=== PATIENT | female | born 1945 | race Caucasian/White ===

== ENCOUNTER → 2018-03-31 | Outpatient (CLI) | payer OTHER ==
[~2018-03-31] MED LIST: ACETAMINOPHEN-1 EAC1 PO; ASPIRIN325 PO; ATORVASTATIN CA40 MG; CARVEDILOL12.5 MG PO; GLUCOPHAGE1000 MG PO; GLUCOTROL5 MG PO; INVOKANA100 MG PO; LOSARTAN-HCTZ1 EAC2 PO; NORVASC5 MG PO; PRILOSEC 20 MG20 MG PO; PRILOSEC40 MG PO; RESTORIL30 MG PO; ZYRTEC 10 MG TA10 M1 PO
--- NOTE | 2018-03-31 16:57 | 2DMMODE ---
[place] [address] 2 D/M-MODE ECHOCARDIOGRAM Name: DAVON NEVAREZ Room: [facility]#: [id number] Admission: 03/31/18 Attend Phys: Jelani Puga, Discharge: Date of : 41 Date of Service: 03/31/18 1657 Report #: [id number] THIS REPORT FOR: //name// APPROVED REPORT Study performed: 03/31/2018 15:09:35 EXAM: Comprehensive 2D, Doppler, and color-flow Echocardiogram Patient Location: Out-Patient Status: routine BSA: 1.90 HR: 82 bpm BP: 150/62 mmHg Other Information Study Quality: Good Indications Aortic Valve Disease 2D Dimensions IVSd: 14.76 (7-11mm) LVOT Diam: 20.21 (18-24mm) LVDd: 44.95 mm PWd: 11.55 (7-11mm) Ascending Ao: 31.13 (22-36mm) LVDs: 21.50 (25-40mm) Aortic Root: 26.73 mm Volumes Left Atrial Volume (Systole) LA ESV Index: 18.20 mL/m2 Aortic Valve AoV Peak Hunter.: 2.73 m/s AO Peak Gr.: 29.71 mmHg LVOT Max P.46 mmHg AO Mean Gr.: 17.09 mmHg LVOT Mean P.06 mmHg LVOT Max V: 1.45 m/s AO V2 VTI: 53.57 cm LVOT Mean V: 0.92 m/s HORACIO (VTI): 1.78 cm2 LVOT V1 VTI: 29.80 cm Mitral Valve E/A Ratio: 0.58 MV Decel. Time: 267.28 ms MV E Max Hunter.: 0.52 m/s MV PHT: 77.51 [place] [address] 2 D/M-MODE ECHOCARDIOGRAM Name: DAVON NEVAREZ Room: [facility]#: [id number] Admission: 03/31/18 Attend Phys: Jelani Puga, Discharge: Date of : 41 Date of Service: 03/31/18 1657 Report #: [id number] MVA (PHT): 2.84 cm2 TDI E/Lateral E': 8.67 E/Medial E': 7.43 Medial E' Hunter.: 0.07 m/s Lateral E' Hunter.: 0.06 m/s Pulmonary Valve PV Peak Hunter.: 1.28 m/s PV Peak Gr.: 6.56 mmHg Tricuspid Valve TR Peak Gr.: 32.07 mmHg RVSP: 37.07 mmHg Left Ventricle The left ventricle is normal size. There is normal LV segmental wall motion. Mild concentric left ventricular hypertrophy. Left ventricular systolic function is normal. The left ventricular ejection fraction is within the normal range. LVEF is 65-70%. Grade I - abnormal relaxation pattern. Right Ventricle The right ventricle is normal size. The right ventricular systolic function is normal. Atria The left atrium size is normal. The right atrium size is normal. Aortic Valve Aortic valve is mildly calcified. Mild aortic regurgitation. Mild aortic stenosis. Mitral Valve The mitral valve is normal in structure. There is no mitral valve regurgitation noted. No evidence of mitral valve stenosis. Tricuspid Valve The tricuspid valve is normal in structure. Mild tricuspid regurgitation. The RVSP is __37.1 mmHg. Pulmonic Valve The pulmonary valve is normal in structure. There is no pulmonic valvular regurgitation. Great Vessels The aortic root is normal in size. IVC is [place] [address] 2 D/M-MODE ECHOCARDIOGRAM Name: DAVON NEVAREZ Room: [facility]#: [id number] Admission: 03/31/18 Attend Phys: Jelani Puga, Discharge: Date of : 41 Date of Service: 03/31/18 1657 Report #: [id number] collapses with >50% inspiration Pericardium There is no pericardial effusion. <Conclusion> LVEF is 65-70%. Mild concentric left ventricular hypertrophy. Mild aortic stenosis. Mild aortic regurgitation. <ELECTRONICALLY SIGNED> By: Nawaf Steiner MD, [facility] 03/31/181656 56 56 Nawaf Steiner MD, FAC /INF
== END ==
LOC: M.CRD 14:48
DX: I08.2 Rheumatic disorders of both aortic and tricuspid valves (principal)

== ENCOUNTER → 2019-12-25 | Outpatient (CLI) | payer OTHER | LOC: M.RAD 11-13 16:49 | DX: Z12.31 Encounter for screening mammogram for malignant neoplasm of breast (principal) ==

== ENCOUNTER → 2020-07-07 | Outpatient (CLI) | payer OTHER ==
--- NOTE | 2020-07-11 07:38 | PATH ---
[address] [address] PATHOLOGY RPT PROCEDURE Name: DAVON NEVAREZ Room: [facility] Russo.#: [id number] Admission: 07/07/20 Date of : 41 Discharge: Report #: [id number] Path Case #: [id number] Note [facility] Accession Number: [id number] TESTS RESULT FLAG UNITS REF RANGE LAB Clinician Provided Cytology Information No. of containers..01 Other (Miscellaneous) Source: LEFT THYROID NODULE DIAGNOSIS: LEFT THYROID NODULE, IMAGE-GUIDED FNA ETHESDA CATEGORY II: CONSISTENT WITH A BENIGN FOLLICULAR/ADENOMATOID NODULE. THIS INTERPRETATION INCLUDES EVALUATION OF A CELL BLOCK. Signed out by: 02 Karel Lewis MD, Pathologist NPI- [id number] Performed by: 01 Brianna Duran, Hair Cutter ([facility]) Gross description: 01 20ML, RED, 4FX 4AD /LCS 07/08/2020 1316 Local FLAG LEGEND: L-Low Normal,H-High Normal,LL-Alert Low,HH-Alert High <-Panic Low,>-Panic High,A-Abnormal,AA-Critical Abnormal Performed at: [address] [place] [address] Adi Mtz MD, [address] [place] [address] [address] [facility], [place] [address] Karel Lewis MD, Specimen Comment: A courtesy copy of this report has been sent to [phone] Specimen Comment: [phone] Specimen Comment: [id number] Specimen Comment: Report sent to / DR KRISHNAN Specimen Comment: Report sent to Performed at: [address], [place], [place] [id number] MD Adi Mtz MD Phone: [phone]
== END | disposition home or self-care (01) ==
LOC: M.ULTRA 08:30
PROVIDERS: ATTEND Family Medicine
DX: E04.1 Nontoxic single thyroid nodule (principal); Z79.899 Other long term (current) drug therapy; Z98.890 Other specified postprocedural states

== ENCOUNTER → 2020-07-18 | Outpatient (CLI) | payer OTHER ==
[~2020-07-18] VITALS: Ht 157.5 cm; Wt 85.3 kg
[~2020-07-18] MED LIST changes: +BENADRYL25 MG; +CARBAMAZEPINE100 M2; +CLONAZEPAM 0.50.5 M1; +ZETIA10 MG; +ZYRTEC10 M5
[2020-07-18 14:14] LABS: HEMATOCRIT 42.6 % (37.0-47.0); HEMOGLOBIN 14.9 gm/dL (12.0-15.0); MCH 32.2 pg (26.0-34.0); MCV 91.8 fL (80.0-100.0); MPV 9.3 fl. (7.2-11.1); RBC 4.63 mil/uL (4.20-5.00); RDW-CV 12.2 % (10.5-14.5); WBC 10.7 thou/uL (4.0-11.0)
[2020-07-18 14:21] VITALS: BP 147/70
[2020-07-18 14:23] LABS: APTT 24.3 Seconds (25.0-31.3); PROTIME 10.8 Seconds (9.20-11.50)
[2020-07-18 14:28] VITALS: BP 147/70
[2020-07-18 15:55] VITALS: BP 154/63
[2020-07-18 16:11] VITALS: BP 140/89
[2020-07-18 16:40] VITALS: BP 170/74
== END | disposition home or self-care (01) ==
LOC: M.INT 13:41
PROVIDERS: Radiology Diagnostic Radiology; ATTEND Radiology Diagnostic Radiology
DX: M80.08XA Age-related osteoporosis with current pathological fracture, vertebra(e), initial encounter for fracture (principal); E11.9 Type 2 diabetes mellitus without complications; I10 Essential (primary) hypertension; Z90.710 Acquired absence of both cervix and uterus; Z98.890 Other specified postprocedural states; Z79.899 Other long term (current) drug therapy; Z72.89 Other problems related to lifestyle; Z79.84 Long term (current) use of oral hypoglycemic drugs

== ENCOUNTER 2020-08-03 11:33 | Emergency (ER) | payer OTHER ==
[~2020-08-03] VITALS: Ht 157.5 cm; Wt 83.0 kg
[2020-08-03 11:54] LABS: ABSOLUTE BASOPHILS 0.1 thou/uL (0.0-0.2); ABSOLUTE EOSINOPHILS 0.2 thou/uL (0.0-0.7); ABSOLUTE LYMPHOCYTES 3.1 thou/uL (0.8-5.3); ABSOLUTE MONOCYTES 0.8 thou/uL (0.0-1.2); ABSOLUTE NEUTROPHILS 6.3 thou/uL (1.6-8.1); BASOPHILS 0.8 %; EOSINOPHILS 1.8 %; HEMATOCRIT 41.2 % (37.0-47.0); HEMOGLOBIN 14.1 gm/dL (12.0-15.0); LYMPHOCYTES 29.5 %; MCH 31.6 pg (26.0-34.0); MCHC 34.3 g/dL (28.0-37.0); MCV 92.1 fL (80.0-100.0); MONOCYTES 7.3 %; MPV 8.9 fl. (7.2-11.1); NUCLEATED RBCS 0 /100WBC; PLATELET COUNT* 211 thou/uL (150-400); POLYS 60.6 %; RBC 4.48 mil/uL (4.20-5.00); RDW-CV 12.6 % (10.5-14.5); WBC 10.5 thou/uL (4.0-11.0)
[2020-08-03 12:05] LABS: APTT 24.6 Seconds (25.0-31.3); PROTIME 10.5 Seconds (9.20-11.50)
[2020-08-03 12:25] LABS: CALCIUM 9.1 mg/dL (8.5-10.1); POTASSIUM 3.7 mmol/L (3.5-5.1)
[2020-08-03 12:34] LABS: ALBUMIN 3.5 g/dL (3.4-5.0); MAGNESIUM 1.8 mg/dL (1.8-2.4); TOTAL BILIRUBIN 0.3 mg/dL (<0.1-1.0); TOTAL PROTEIN 7.3 g/dL (6.4-8.2)
[2020-08-03 14:39] VITALS: BP 180/75
--- NOTE | 2020-08-04 11:47 | EKG ---
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1945 Requested By: Donnie Edwards Order Number: [id number] MD: Isaac Merino Measurements Intervals [place] Rate: 92 P: 44 [place]: 165 QRS: 55 QRSD: 85 T: 39 QT: 375 QTc: 464 Interpretive Statements Sinus rhythm Multiple premature complexes, vent & supraven Baseline wander in lead(s) II,III,aVR,aVL,aVF,V3 Compared to ECG 10/25/2016 11:03:40 No significant changes Electronically Signed On 08-04-2020 11:47:23 CDT by Isaac Merino [email or web address] <ELECTRONICALLY SIGNED> By: Isaac Merino MD, [facility] 08/04/20 1147 1137 1137 Isaac Merino MD, FAC /EPI
== END 2020-08-03 14:39 | disposition home or self-care (01) ==
LOC: M.ERS 11:33
PROVIDERS: Family Medicine
DX: R07.89 Other chest pain (principal); E11.9 Type 2 diabetes mellitus without complications; I10 Essential (primary) hypertension; Z79.899 Other long term (current) drug therapy; Z79.82 Long term (current) use of aspirin; Z88.8 Allergy status to other drugs, medicaments and biological substances; Z86.73 Personal history of transient ischemic attack (TIA), and cerebral infarction without residual deficits; Z90.710 Acquired absence of both cervix and uterus; Z90.49 Acquired absence of other specified parts of digestive tract

== ENCOUNTER 2020-08-05 10:59 | Inpatient (IN) | payer OTHER ==
[~2020-08-05] VITALS: Ht 157.5 cm; Wt 85.8 kg
[2020-08-05 11:05] VITALS: BP 224/86
[2020-08-05 11:22] LABS: ABSOLUTE BASOPHILS 0.1 thou/uL (0.0-0.2); ABSOLUTE LYMPHOCYTES 1.8 thou/uL (0.8-5.3); ABSOLUTE MONOCYTES 0.7 thou/uL (0.0-1.2); ABSOLUTE NEUTROPHILS 11.5 thou/uL (1.6-8.1); BASOPHILS 0.5 %; EOSINOPHILS 0.3 %; HEMATOCRIT 42.2 % (37.0-47.0); HEMOGLOBIN 14.7 gm/dL (12.0-15.0); MCH 31.9 pg (26.0-34.0); MCHC 34.9 g/dL (28.0-37.0); MCV 91.5 fL (80.0-100.0); MONOCYTES 4.9 %; MPV 9.1 fl. (7.2-11.1); NUCLEATED RBCS 0 /100WBC; PLATELET COUNT* 211 thou/uL (150-400); POLYS 81.3 %; RBC 4.62 mil/uL (4.20-5.00); RDW-CV 12.5 % (10.5-14.5); WBC 14.2 thou/uL (4.0-11.0)
[2020-08-05 11:39] LABS: CALCIUM 9.7 mg/dL (8.5-10.1); POTASSIUM 3.3 mmol/L (3.5-5.1)
[2020-08-05 11:50] LABS: ALBUMIN 4.2 g/dL (3.4-5.0); MAGNESIUM 1.8 mg/dL (1.8-2.4); TOTAL BILIRUBIN 0.3 mg/dL (<0.1-1.0); TOTAL PROTEIN 8.3 g/dL (6.4-8.2)
[2020-08-05 14:23] VITALS: BP 166/68
--- NOTE | 2020-08-05 15:00 | EKG ---
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1945 Requested By: Leonel Gleason Order Number: [id number] MD: Isaac Merino Measurements Intervals [place] Rate: 68 P: 66 [place]: 184 QRS: 64 QRSD: 83 T: 35 QT: 395 QTc: 421 Interpretive Statements Sinus rhythm Ventricular premature complex Probable left atrial enlargement Baseline wander in lead(s) II,III,aVF Compared to ECG 08/03/2020 11:37:53 Ventricular premature complex(es) now present Electronically Signed On 08-05-2020 15:00:27 CDT by Isaac Merino [email or web address] <ELECTRONICALLY SIGNED> By: Isaac Merino MD, FACC 08/05/20 1500 1102 1102 Isaac Merino MD, FAC /EPI
[2020-08-05 18:00] VITALS: BP 175/70
[2020-08-05 20:10] VITALS: BP 157/63
[2020-08-05] MEDS ORDERED: TRULICITY0.75 MG/0. SUBQ (21:16)
[2020-08-06] VITALS: BP 142/65
[2020-08-06 02:06] LABS: GLYCOHEMOGLOBIN (HGB A1C) 6.1 % (4.8-5.6)
[2020-08-06 04:00] VITALS: BP 124/59
[2020-08-06 05:09] LABS: HEMATOCRIT 34.2 % (37.0-47.0); MCH 32.4 pg (26.0-34.0); MCHC 35.3 g/dL (28.0-37.0); MCV 91.7 fL (80.0-100.0); MPV 9.3 fl. (7.2-11.1); RBC 3.73 mil/uL (4.20-5.00); RDW-CV 12.5 % (10.5-14.5); WBC 13.4 thou/uL (4.0-11.0)
[2020-08-06 05:36] LABS: ALBUMIN 3.1 g/dL (3.4-5.0); CALCIUM 8.8 mg/dL (8.5-10.1); CREATININE 0.9 mg/dL (0.6-1.3); MAGNESIUM 1.8 mg/dL (1.8-2.4); POTASSIUM 3.4 mmol/L (3.5-5.1); TOTAL BILIRUBIN 0.5 mg/dL (<0.1-1.0); TOTAL PROTEIN 6.5 g/dL (6.4-8.2)
[2020-08-06 05:37] LABS: HEMOGLOBIN 12.1 gm/dL (12.0-15.0)
[2020-08-06 08:00] VITALS: BP 153/69
[2020-08-06 12:37] VITALS: BP 144/64
[2020-08-06 20:51] VITALS: BP 133/59
[2020-08-07 04:23] LABS: HEMATOCRIT 33.5 % (37.0-47.0); HEMOGLOBIN 11.9 gm/dL (12.0-15.0); MCH 32.5 pg (26.0-34.0); MCHC 35.4 g/dL (28.0-37.0); MCV 91.9 fL (80.0-100.0); MPV 9.3 fl. (7.2-11.1); RBC 3.65 mil/uL (4.20-5.00); RDW-CV 12.6 % (10.5-14.5); WBC 9.4 thou/uL (4.0-11.0)
[2020-08-07 04:40] LABS: CALCIUM 8.6 mg/dL (8.5-10.1); CREATININE 0.9 mg/dL (0.6-1.3); POTASSIUM 3.6 mmol/L (3.5-5.1); TOTAL BILIRUBIN 0.3 mg/dL (<0.1-1.0); TOTAL PROTEIN 6.4 g/dL (6.4-8.2)
[2020-08-07] MEDS ORDERED: HYDROCODON-ACE1 EAC7 PO (08:29)
[2020-08-07 08:30] VITALS: BP 162/74
[2020-08-07] MEDS ORDERED: ZOFRAN ODT4 MG PO (09:47)
[2020-08-07 12:33] VITALS: BP 162/74
--- NOTE | 2020-08-10 10:07 | PATH ---
[address] [address] PATHOLOGY RPT PROCEDURE Name: SUSANNE NEVAREZ Room: [address] IN ..#: [id number] Admission: 08/05/20 Date of : 41 Discharge: 08/07/20 Report #: [id number] Path Case #: [id number] [facility] Accession Number: [id number] . 01 Material submitted: . gallbladder - GALLBLADDER WITH CONTENTS . 01 Clinical history: . CHOLECYSTITIS . 02 Diagnosis: Gallbladder with contents: - Chronic cholecystitis and cholelithiasis. (QUITA/db; 08/09/2020) LBQ 08/09/2020 1542 Local . 02 Electronically signed: . Karel Lewis MD, Pathologist NPI- [id number] . 01 Gross description: . The specimen is received in formalin labeled "Nevarez, Susanne, gallbladder" and consists of an intact green gallbladder measuring 7.8 x 4.5 x 3.4 cm. The margin is inked black. Opening reveals a lumen filled with viscous dark green bile and multiple mulberry calculi measuring up to 0.7 cm. The mucosa is green and granular with an average wall thickness of 0.1 cm. No masses are identified. Physicist Astrophysics sections are submitted in A1. (SDY; 08/08/2020) SYU/SYU 08/09/2020 1541 Local . 02 Pathologist provided ICD-10: K80.10 . 02 CPT . 488591 Specimen Comment: A courtesy copy of this report has been sent to [phone] Specimen Comment: [phone], Specimen Comment: Report sent to ,DR SMITH / DR KRISHNAN Performed at: [address], [place] [id number] MD Adi Mtz MD Phone: [phone] Performed at: [address] [address] [address] [place], [place] [id number] MD Karel Lewis MD Phone: [phone]
--- NOTE | 2020-08-11 10:19 | OP ---
[address] [address] OPERATIVE REPORT Name: DAVON NEVAREZ Room: [address] IN .R.#: [id number] Admission: 08/05/20 Attend Phys: Venus Garibay MD Discharge: 08/07/20 Date of : 41 Report #: [id number] THIS REPORT FOR: //name// cc: Shantell Cardenas Maggie M. DO ~ CC: Venus Cardenas DATE OF SERVICE: 08/05/2020 PREOPERATIVE DIAGNOSIS: Acute cholecystitis. POSTOPERATIVE DIAGNOSIS: Acute cholecystitis. OPERATION: Laparoscopic cholecystectomy. SURGEON: Dave Jerez MD ANESTHESIA: General. ESTIMATED BLOOD LOSS: Minimal. SPECIMEN: Gallbladder. DESCRIPTION OF PROCEDURE: After informed consent was obtained, the patient was brought to the operating room and placed supine. SCDs were placed and working, preoperative antibiotics were administered, general anesthesia was induced. The abdomen was prepped and draped in the usual sterile fashion. A 10 mm incision was made above the umbilicus. Fascia was incised and a trocar was placed. Pneumoperitoneum was established. Three right upper quadrant 5 mm ports were placed. Gallbladder was grasped at the fundus and retracted cephalad. It was inflamed consistent with cholecystitis. I dissected out the cystic duct and cystic artery. The cystic duct and artery were clipped and ligated leaving a clip on the remaining artery and 2 clips on the remaining duct. Gallbladder was then taken off the liver bed with electrocautery. It was placed into an Endopouch and removed. The fascia was then closed with a [id number] 0 Vicryl. Skin was closed with 4-0 Monocryl. Incisions were sealed with Dermabond. COMPLICATIONS: None. DISPOSITION: The patient was taken to recovery in satisfactory condition. <ELECTRONICALLY SIGNED> By: Dave Jerez MD 08/11/20 1019 1648 1930Dave Jerez MD /nt
== END 2020-08-07 14:30 | disposition home or self-care (01) | DRG 418 ==
LOC: M.ERS 10:59 → M.TBA-ER 12:52 → M.2W 13:08 → M.ORTHSURG 08-06 18:20
PROVIDERS: Emergency Medicine Emergency Medical Services; ADMIT Internal Medicine; ATTEND Internal Medicine
PROC: 0FT44ZZ Resection of Gallbladder, Percutaneous Endoscopic Approach (ICD-10-PCS; principal; 2020-08-05)
DX: K81.0 Acute cholecystitis (principal); R65.10 Systemic inflammatory response syndrome (SIRS) of non-infectious origin without acute organ dysfunction; E87.2 Acidosis; I10 Essential (primary) hypertension; I16.0 Hypertensive urgency; R07.9 Chest pain, unspecified; I35.0 Nonrheumatic aortic (valve) stenosis; E66.9 Obesity, unspecified; K21.9 Gastro-esophageal reflux disease without esophagitis; F41.9 Anxiety disorder, unspecified; F32.9 Major depressive disorder, single episode, unspecified; E11.40 Type 2 diabetes mellitus with diabetic neuropathy, unspecified; I25.10 Atherosclerotic heart disease of native coronary artery without angina pectoris; E78.5 Hyperlipidemia, unspecified; Z20.828 Contact with and (suspected) exposure to other viral communicable diseases; Z86.73 Personal history of transient ischemic attack (TIA), and cerebral infarction without residual deficits; Z90.710 Acquired absence of both cervix and uterus; Z90.49 Acquired absence of other specified parts of digestive tract; Z88.8 Allergy status to other drugs, medicaments and biological substances; Z79.84 Long term (current) use of oral hypoglycemic drugs; Z79.82 Long term (current) use of aspirin; Z79.899 Other long term (current) drug therapy; Z68.34 Body mass index [BMI] 34.0-34.9, adult

== ENCOUNTER 2021-12-16 12:41 | Emergency (ER) | payer MEDICARE ==
[~2021-12-16] VITALS: Ht 157.5 cm; Wt 81.7 kg
[~2021-12-16 12:41] MED LIST changes: +HYDROCODON-ACE1 EAC7 PO; -PRILOSEC 20 MG20 MG PO; +PRILOSEC OTC20 MG PO; +TRULICITY0.75 MG/0. SUBQ; +ZOFRAN ODT4 MG PO
[2021-12-16 13:31] LABS: URINE BLOOD NEGATIVE (Negative); URINE CLARITY CLEAR; URINE COLOR YELLOW; URINE GLUCOSE-RANDOM NEGATIVE (Negative); URINE KETONES 2+ (Negative); URINE LEUKOCYTES-REFLEX NEGATIVE (Negative); URINE NITRITE-REFLEX NEGATIVE (Negative); URINE PROTEIN 1+ (Negative); URINE SPECIFIC GRAVITY >= 1.030 (1.005-1.030); URINE UROBILINOGEN 0.2 E.U./dl (0.2-1.0)
[2021-12-16 13:38] LABS: URINE BILIRUBIN 2+ (Negative)
[2021-12-16 13:39] LABS: ICTOTEST (BILI CONFIRMATORY) Negative (Negative)
[2021-12-16 13:57] LABS: ABSOLUTE LYMPHOCYTES 1.1 thou/uL (0.8-5.3); ABSOLUTE MONOCYTES 0.6 thou/uL (0.0-1.2); ABSOLUTE NEUTROPHILS 3.7 thou/uL (1.6-8.1); BASOPHILS 0.4 %; EOSINOPHILS 0.2 %; HEMATOCRIT 39.8 % (37.0-47.0); HEMOGLOBIN 13.3 gm/dL (12.0-15.0); LYMPHOCYTES 20.5 %; MCH 30.1 pg (26.0-34.0); MCHC 33.5 g/dL (28.0-37.0); MONOCYTES 10.3 %; MPV 9.5 fl. (7.2-11.1); NUCLEATED RBCS 0 /100WBC; PLATELET COUNT* 135 thou/uL (150-400); POLYS 68.6 %; RBC 4.42 mil/uL (4.20-5.00); RDW-CV 12.6 % (10.5-14.5); WBC 5.4 thou/uL (4.0-11.0)
[2021-12-16 14:00] LABS: CALCIUM 8.6 mg/dL (8.5-10.1); POTASSIUM 3.7 mmol/L (3.5-5.1)
[2021-12-16 14:05] LABS: ALBUMIN 3.5 g/dL (3.4-5.0); TOTAL BILIRUBIN 0.6 mg/dL (<0.1-1.0); TOTAL PROTEIN 7.6 g/dL (6.4-8.2)
[2021-12-16] MEDS ORDERED: ONDANSETRON HCL4 M2 PO (15:23)
[2021-12-16] MEDS ORDERED: LEVOFLOXACIN500 MG PO (15:23)
[2021-12-16] MEDS ORDERED: AUGMENTIN 875-1 EACH PO (15:24)
[2021-12-16] MEDS ORDERED: PROMETHAZI6.25 MG/5 PO (15:48)
[2021-12-16 16:25] VITALS: BP 150/74
== END 2021-12-16 16:26 | disposition home or self-care (01) ==
LOC: M.ERS 12:41
PROVIDERS: Physician Assistant
DX: J18.9 Pneumonia, unspecified organism (principal); Z20.822 Contact with and (suspected) exposure to COVID-19; E11.9 Type 2 diabetes mellitus without complications; I10 Essential (primary) hypertension; Z86.73 Personal history of transient ischemic attack (TIA), and cerebral infarction without residual deficits; Z90.49 Acquired absence of other specified parts of digestive tract; Z90.710 Acquired absence of both cervix and uterus; Z79.899 Other long term (current) drug therapy; Z79.82 Long term (current) use of aspirin; Z88.8 Allergy status to other drugs, medicaments and biological substances

== ENCOUNTER 2021-12-17 02:31 | Inpatient (IN) | payer MEDICARE ==
[~2021-12-17] VITALS: Ht 157.5 cm; Wt 80.9 kg
[~2021-12-17 02:31] MED LIST changes: +AUGMENTIN 875-1 EACH PO; +LEVOFLOXACIN500 MG PO; +ONDANSETRON HCL4 M2 PO; +PROMETHAZI6.25 MG/5 PO
[2021-12-17 02:47] VITALS: BP 179/70
[2021-12-17 02:54] LABS: URINE BLOOD NEGATIVE (Negative); URINE CLARITY CLEAR; URINE COLOR YELLOW; URINE GLUCOSE-RANDOM NEGATIVE (Negative); URINE KETONES 2+ (Negative); URINE LEUKOCYTES-REFLEX NEGATIVE (Negative); URINE NITRITE-REFLEX NEGATIVE (Negative); URINE PROTEIN TRACE (Negative); URINE SPECIFIC GRAVITY 1.025 (1.005-1.030); URINE UROBILINOGEN 0.2 E.U./dl (0.2-1.0)
[2021-12-17 03:03] LABS: URINE BILIRUBIN 1+ (Negative)
[2021-12-17 03:06] LABS: ICTOTEST (BILI CONFIRMATORY) Negative (Negative)
[2021-12-17 03:24] LABS: ABSOLUTE LYMPHOCYTES 1.3 thou/uL (0.8-5.3); ABSOLUTE MONOCYTES 0.5 thou/uL (0.0-1.2); ABSOLUTE NEUTROPHILS 3.6 thou/uL (1.6-8.1); BASOPHILS 0.4 %; EOSINOPHILS 0.3 %; HEMOGLOBIN 12.8 gm/dL (12.0-15.0); LYMPHOCYTES 23.4 %; MCH 30.1 pg (26.0-34.0); MCHC 33.6 g/dL (28.0-37.0); MCV 89.3 fL (80.0-100.0); MONOCYTES 9.9 %; MPV 9.3 fl. (7.2-11.1); NUCLEATED RBCS 0 /100WBC; PLATELET COUNT* 130 thou/uL (150-400); RBC 4.25 mil/uL (4.20-5.00); RDW-CV 12.7 % (10.5-14.5); WBC 5.5 thou/uL (4.0-11.0)
[2021-12-17 03:34] LABS: CALCIUM 7.8 mg/dL (8.5-10.1); CREATININE 0.8 mg/dL (0.6-1.3); POTASSIUM 3.4 mmol/L (3.5-5.1)
[2021-12-17 03:39] LABS: ALBUMIN 3.2 g/dL (3.4-5.0); MAGNESIUM 1.6 mg/dL (1.8-2.4); TOTAL BILIRUBIN 0.5 mg/dL (<0.1-1.0); TOTAL PROTEIN 6.8 g/dL (6.4-8.2)
[2021-12-17 08:30] VITALS: BP 140/118
--- NOTE | 2021-12-17 10:04 | NUR ---
ASSUMED PT CARE AT THIS TIME
[2021-12-17 11:16] LABS: HEMATOCRIT 32.8 % (37.0-47.0); HEMOGLOBIN 11.3 gm/dL (12.0-15.0); MCH 30.2 pg (26.0-34.0); MCHC 34.5 g/dL (28.0-37.0); MCV 87.5 fL (80.0-100.0); MPV 8.9 fl. (7.2-11.1); RBC 3.75 mil/uL (4.20-5.00); RDW-CV 12.5 % (10.5-14.5); WBC 4.3 thou/uL (4.0-11.0)
--- NOTE | 2021-12-17 11:17 | NUR ---
BLOOD SUGAR 103
[2021-12-17 11:28] LABS: CALCIUM 7.7 mg/dL (8.5-10.1); CREATININE 0.7 mg/dL (0.6-1.3); MAGNESIUM 1.8 mg/dL (1.8-2.4); POTASSIUM 3.3 mmol/L (3.5-5.1)
[2021-12-17 12:30] VITALS: BP 164/64
--- NOTE | 2021-12-17 13:25 | NUR ---
DAUGHTER, [facility],
[2021-12-17 16:30] VITALS: BP 160/63
[2021-12-17 19:30] VITALS: BP 169/70
[2021-12-17 22:30] VITALS: BP 154/66
[2021-12-18] VITALS (7 sets, daily range): BP systolic 121–169; BP diastolic 46–69
[2021-12-18 04:21] LABS: HEMATOCRIT 37.4 % (37.0-47.0); HEMOGLOBIN 12.6 gm/dL (12.0-15.0); MCH 30.2 pg (26.0-34.0); MCHC 33.7 g/dL (28.0-37.0); MCV 89.4 fL (80.0-100.0); MPV 9.4 fl. (7.2-11.1); RBC 4.19 mil/uL (4.20-5.00); RDW-CV 12.9 % (10.5-14.5)
[2021-12-18 05:00] LABS: ALBUMIN 3.1 g/dL (3.4-5.0); CALCIUM 8.4 mg/dL (8.5-10.1); CREATININE 0.8 mg/dL (0.6-1.3); MAGNESIUM 1.6 mg/dL (1.8-2.4); POTASSIUM 3.1 mmol/L (3.5-5.1); TOTAL BILIRUBIN 0.4 mg/dL (<0.1-1.0); TOTAL PROTEIN 6.7 g/dL (6.4-8.2)
--- NOTE | 2021-12-18 09:40 | EKG ---
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[facility] : 1945 Requested By: Stefanie White Order Number: [id number] MD: Nawaf Steiner Measurements Intervals [place] Rate: 57 P: 62 [place]: 167 QRS: 34 QRSD: 81 T: 54 QT: 407 QTc: 397 Interpretive Statements Sinus rhythm with PAC Compared to ECG 08/05/2020 11:02:34 Ventricular premature complex(es) no longer present Electronically Signed On 12-18-2021 9:40:25 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
--- NOTE | 2021-12-18 13:51 | EKG ---
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: : 1945 Requested By: Stefanie White Order Number: [id number] MD: Nawaf Steiner Measurements Intervals [place] Rate: 83 P: 110 [place]: 138 QRS: 100 QRSD: 84 T: -24 QT: 393 QTc: 462 Interpretive Statements Right and left arm electrode reversal, interpretation assumes no reversal Sinus rhythm Supraventricular bigeminy Inferior infarct, age indeterminate Baseline wander in lead(s) V2 Compared to ECG 12/16/2021 13:48:59 no change Electronically Signed On 12-18-2021 13:50:50 INTEGRATED CIRCUIT IC LAYOUT DESIGNER by Nawaf Steiner [email or web address] <ELECTRONICALLY SIGNED> By: Nawaf Steiner MD, FAC 12/18/21 1350 2 2 Nawaf Steiner MD, [facility] /EPI
--- NOTE | 2021-12-18 16:21 | NUR ---
Attempted to assess pt x3 with no success. Called into pt's room with no success. Called pt's dtr - Nkechi Martinez at: [phone] with no answer x2. Cm to continue to follow for discharge planning.
[2021-12-19] VITALS: BP 142/49
--- NOTE | 2021-12-19 03:56 | NUR ---
PT A&O X 4. VSS ON RA. MEDS GIVEN ORDERED. NO C/O PAIN. UP INDEPENDENTLY IN ROOM. CALL LIGHT WITHIN REACH. WILL CONTINUE TO MONITOR.
[2021-12-19 04:00] VITALS: BP 113/53
[2021-12-19 04:19] LABS: HEMATOCRIT 37.5 % (37.0-47.0); HEMOGLOBIN 12.5 gm/dL (12.0-15.0); MCH 29.4 pg (26.0-34.0); MCHC 33.5 g/dL (28.0-37.0); MCV 87.9 fL (80.0-100.0); MPV 9.1 fl. (7.2-11.1); RBC 4.26 mil/uL (4.20-5.00); RDW-CV 12.2 % (10.5-14.5); WBC 3.9 thou/uL (4.0-11.0)
[2021-12-19 05:20] LABS: ALBUMIN 2.9 g/dL (3.4-5.0); CALCIUM 8.9 mg/dL (8.5-10.1); CREATININE 0.8 mg/dL (0.6-1.3); MAGNESIUM 1.9 mg/dL (1.8-2.4); POTASSIUM 3.8 mmol/L (3.5-5.1); TOTAL BILIRUBIN 0.4 mg/dL (<0.1-1.0); TOTAL PROTEIN 6.8 g/dL (6.4-8.2)
[2021-12-19 10:13] VITALS: BP 171/75
[2021-12-19] MEDS ORDERED: DOXYCYCLINE 10100 MG PO (11:21)
[2021-12-19] MEDS ORDERED: CEFDINIR300 MG PO (11:21)
[2021-12-19] MEDS ORDERED: DEXAMETHASONE 22 M1 PO (11:21)
[2021-12-19 11:48] VITALS: BP 171/75
[2021-12-19 12:00] VITALS: BP 160/72
--- NOTE | 2021-12-19 16:13 | NUR ---
CM ATTEMPTED TO CONDUCT ASSESSMENT BY CALLING PT ROOM AND PT DAUGHTER (NABIL NEVAREZ [phone]). CM WAS NOT ABLE TO MAKE CONTACT WITH EITHER CONSTITUTION PARTY. PT MED CLEAR FOR DC HOME TODAY. PT COMPLETED REST/EX AND DID NOT NEED O2 AT DC. PT DISCHARGED.
== END 2021-12-19 14:50 | disposition home or self-care (01) | DRG 177 ==
LOC: M.ERS 02:31 → M.ORTHSURG 05:29 → M.TBA-ER 05:29 → M.ORTHSURG 12-18 09:25
PROVIDERS: Emergency Medicine; Internal Medicine; ADMIT Internal Medicine; ATTEND Internal Medicine
PROC: XW033E5 Introduction of Remdesivir Anti-infective into Peripheral Vein, Percutaneous Approach, New Technology Group 5 (ICD-10-PCS; principal; 2021-12-18)
DX: U07.1 COVID-19 (principal); J15.6 Pneumonia due to other Gram-negative bacteria; A08.4 Viral intestinal infection, unspecified; J12.82 Pneumonia due to coronavirus disease 2019; I10 Essential (primary) hypertension; E11.40 Type 2 diabetes mellitus with diabetic neuropathy, unspecified; E86.0 Dehydration; G89.29 Other chronic pain; M54.9 Dorsalgia, unspecified; E78.5 Hyperlipidemia, unspecified; D75.839 Thrombocytosis, unspecified; D69.6 Thrombocytopenia, unspecified; Z86.73 Personal history of transient ischemic attack (TIA), and cerebral infarction without residual deficits; Z98.49 Cataract extraction status, unspecified eye; Z90.49 Acquired absence of other specified parts of digestive tract; Z88.8 Allergy status to other drugs, medicaments and biological substances